=== PATIENT | female | born 1975 | race Caucasian/White ===

== ENCOUNTER 2017-04-27 11:59 | Emergency (ER) | payer OTHER ==
[2017-04-27 12:07] VITALS: BP 107/83; PULSE 70; TEMP 99.3; BMI 25.4
[2017-04-27] MEDS ORDERED: RABIES VACCINE (PCEC)/PF 2.5 UNIT/VIAL IM ONE (13:33)
[2017-04-27] MEDS ORDERED: RABIES IMMUNE GLOBULIN 300 UNITS/2 ML VIAL IM ONE (13:33)
[2017-04-27] MEDS ORDERED: RABIES IMMUNE GLOBULIN 300 UNITS/2 ML VIAL ONE (13:38)
--- NOTE | 2017-04-27 13:58 | PDOC ---
History of Present Illness - General Chief Complaint: Revisit,Rabies Injection Stated Complaint: RABIES SHOT Time Seen by Provider: 04/27/17 12:41 History Source: Patient Exam Limitations: No Limitations - History of Present Illness Initial Comments: 04/27/17 13:41 Patient is a 41-year-old female [facility]ies [facility]. Patient was sitting in her backyard and a bat landed on her head. She jumped up and swatted it off. There was no bite benigno noted. Initially at urgent care on 11/17/2016 after incident, reports were filed and sent to the [facility] they notified her today to come to emergency department for vaccinations. Past Medical History: Denies. Allergies: No known allergies Medications: None Family History: Non-contributory Social History: Denies smoking, alcohol use, or IVDU Review of Systems GENERAL/CONSTITUTIONAL: No fever or chills. No weakness. No weight change. HEAD, EYES, EARS, NOSE AND THROAT: No change in vision. No ear pain or discharge. No sore throat. CARDIOVASCULAR: No chest pain or shortness of breath. RESPIRATORY: No cough, wheezing, or hemoptysis. MUSCULOSKELETAL: No joint or muscle swelling or pain. No neck or back pain. SKIN AND BREASTS: No rash or easy bruising. No open areas. Physical Exam: GENERAL: The patient is awake, alert, and fully oriented, in no acute distress. NECK: Normal range of motion, supple without lymphadenopathy, JVD, or masses. LUNGS: Breath sounds equal, clear to auscultation bilaterally. No wheezes, and no crackles. HEART: Regular rate and rhythm, normal S1 and S2 without murmur, rub or gallop. MUSCULOSKELETAL: Normal range of motion, no edema. No clubbing or cyanosis. No cords, erythema, or tenderness. No CVA Tenderness with fist. SKIN: Warm, Dry, normal turgor, no rashes or lesions noted. No open areas. Past History - Past Medical History Allergies/Adverse Reactions: Allergies Allergy/AdvReac Type Severity Reaction Status Date / Time No Known Allergies Allergy Verified 04/27/17 12:07 Home Medications: Ambulatory Orders NK [No Known Home Medication] 04/27/17 Diabetes: Yes (Pre) Other medical history: iron deficiency, alopecia, Raynolds dis - Suicide/Smoking/Psychosocial Hx Smoking History: Never smoked Information on smoking cessation initiated: No Hx Alcohol Use: No Drug/Substance Use Hx: No Substance Use Type: None *Physical Exam - Vital Signs Last Vital Signs Temp Pulse Resp BP Pulse Ox 99.3 F 70 19 107/83 99 04/27/17 12:06 04/27/17 12:06 04/27/17 12:06 04/27/17 12:06 04/27/17 12:06 Medical Decision Making - Medical Decision Making 04/27/17 13:58 A/P: Patient here for rabies vaccination, [facility] report has been received will give rabies and as indicated. Schedule for when to return give nto patient. *DC/Admit/Observation/Transfer Diagnosis at time of Disposition: Exposure to bat without known bite, Encounter for prophylactic rabies immune globin - Discharge Dispostion Disposition: HOME Condition at time of disposition: Good Admit: No - Referrals Referrals: Danette Maki MD [Primary Care Provider] - - Patient Instructions Printed Discharge Instructions: DI for Rabies Vaccine - Post Discharge Activity Forms/Work/School Notes: Rabies Vaccination F/U Bernardo.
== END 2017-04-27 14:18 | disposition home or self-care (01) ==
LOC: JERFT 11:59
PROC: 3E0234Z Introduction of Serum, Toxoid and Vaccine into Muscle, Percutaneous Approach (ICD-10-PCS; principal; 2017-04-27)
DX: Z23 Encounter for immunization (principal); Z20.3 Contact with and (suspected) exposure to rabies
CPT/HCPCS: 90375; 90675; 99281-25

== ENCOUNTER 2017-04-30 12:33 | Emergency (ER) | payer OTHER ==
[2017-04-30 12:44] VITALS: BP 128/71; PULSE 81; TEMP 99; BMI 23.8
[2017-04-30] MEDS ORDERED: RABIES VACCINE (PCEC)/PF 2.5 UNIT/VIAL IM ONE (12:56)
--- NOTE | 2017-04-30 13:00 | PDOC ---
History of Present Illness - General Chief Complaint: Revisit,Rabies Injection Stated Complaint: REVISIT/ VACCINE Time Seen by Provider: 04/30/17 12:55 History Source: Patient Exam Limitations: No Limitations - History of Present Illness Initial Comments: 04/30/17 12:55 rabies vaccine 2, patient's exposure was 3 days ago where back landed on her head for a few seconds. Is uncertain as to bite but health department recommended rabies vaccination series. Patient states had no problems with first vaccine or the immunoglobulin. 04/30/17 17:07 Timing/Duration: unsure Severity: mild Associated Symptoms: reports: denies symptoms. denies: fever/chills, headaches Aspirin Received prior to arrival: Yes: no aspirin today Past History - Travel Traveled outside of the country in the last 30 days: No Close contact w/someone who was outside of country & ill: No - Past Medical History Allergies/Adverse Reactions: Allergies Allergy/AdvReac Type Severity Reaction Status Date / Time No Known Allergies Allergy Verified 04/30/17 12:44 Home Medications: Ambulatory Orders NK [No Known Home Medication] 04/27/17 Diabetes: Yes (Pre) - Suicide/Smoking/Psychosocial Hx Smoking History: Never smoked Information on smoking cessation initiated: No Hx Alcohol Use: No Drug/Substance Use Hx: No Substance Use Type: None Review of Systems - Review of Systems Able to Perform ROS?: Yes Is the patient limited Yakut proficient: Yes Constitutional: Yes: See HPI. No: Symptoms Reported, Fever, Malaise HEENTM: Yes: See HPI. No: Symptoms Reported Respiratory: Yes: See HPI. No: Symptoms reported Musculoskeletal: No: Symptoms Reported Integumentary: Yes: See HPI. No: Symptoms Reported All Other Systems: Reviewed and Negative *Physical Exam - Vital Signs Last Vital Signs Temp Pulse Resp BP Pulse Ox 99 F 81 18 128/71 99 04/30/17 12:42 04/30/17 12:42 04/30/17 12:42 04/30/17 12:42 04/30/17 12:42 - Physical Exam General Appearance: Yes: Nourished, Appropriately Dressed. No: Apparent Distress HEENT: positive: OLEKSANDR, Normal ENT Inspection, TMs Normal, Pharynx Normal Neck: positive: Supple Respiratory/Chest: positive: Lungs Clear Extremity: positive: Normal Capillary Refill, Normal Inspection Integumentary: positive: Normal Color, Dry, Warm Neurologic: positive: manager of digital II-XII NML intact, Fully Oriented, Alert, Normal Mood/ Affect, Normal Response, Motor Strength 5/5 *DC/Admit/Observation/Transfer Diagnosis at time of Disposition: Encounter for repeat administration of rabies vaccination - Discharge Dispostion Disposition: HOME Condition at time of disposition: Stable Admit: No - Referrals Referrals: Danette Maki MD [Primary Care Provider] - - Patient Instructions Printed Discharge Instructions: DI for Rabies Vaccine Additional Instructions: Return May 04 for 3rd Rabies vaccine
== END 2017-04-30 13:08 | disposition home or self-care (01) ==
LOC: JERFT 12:33
PROC: 3E0234Z Introduction of Serum, Toxoid and Vaccine into Muscle, Percutaneous Approach (ICD-10-PCS; principal; 2017-04-30)
DX: Z23 Encounter for immunization (principal); Z20.3 Contact with and (suspected) exposure to rabies
CPT/HCPCS: 90675; 99281-25

== ENCOUNTER 2017-05-04 12:16 | Emergency (ER) | payer OTHER ==
[2017-05-04 12:47] VITALS: BP 109/88; PULSE 92; TEMP 98.9; BMI 23.8
[2017-05-04] MEDS ORDERED: RABIES VACCINE (PCEC)/PF 2.5 UNIT/VIAL IM ONE (12:55)
--- NOTE | 2017-05-04 12:58 | PDOC ---
History of Present Illness - General Chief Complaint: Revisit,Rabies Injection Stated Complaint: REVISIT/ VACCINE Time Seen by Provider: 05/04/17 12:55 History Source: Patient Exam Limitations: No Limitations - History of Present Illness Initial Comments: 05/04/17 13:00 Patient is a 41-year-old female sent [facility] for rabies vaccinations. Patient was sitting in her backyard and a bat landed on her head. Initial incident 11/17, here for third rabies vaccination. No previous vaccination noted. Past Medical History: Denies. Allergies: No known allergies Medications: None Family History: Non-contributory Social History: Denies smoking, alcohol use, or IVDU Review of Systems GENERAL/CONSTITUTIONAL: No fever or chills. No weakness. No weight change. HEAD, EYES, EARS, NOSE AND THROAT: No change in vision. No ear pain or discharge. No sore throat. CARDIOVASCULAR: No chest pain or shortness of breath. RESPIRATORY: No cough, wheezing, or hemoptysis. MUSCULOSKELETAL: No joint or muscle swelling or pain. No neck or back pain. SKIN AND BREASTS: No rash or easy bruising. No open areas. Physical Exam: GENERAL: The patient is awake, alert, and fully oriented, in no acute distress. NECK: Normal range of motion, supple without lymphadenopathy, JVD, or masses. LUNGS: Breath sounds equal, clear to auscultation bilaterally. No wheezes, and no crackles. HEART: Regular rate and rhythm, normal S1 and S2 without murmur, rub or gallop. MUSCULOSKELETAL: Normal range of motion, no edema. No clubbing or cyanosis. No cords, erythema, or tenderness. No CVA Tenderness with fist. SKIN: Warm, Dry, normal turgor, no rashes or lesions noted. No open areas. Past History - Past Medical History Allergies/Adverse Reactions: Allergies Allergy/AdvReac Type Severity Reaction Status Date / Time No Known Allergies Allergy Verified 04/30/17 12:44 Home Medications: Ambulatory Orders NK [No Known Home Medication] 04/27/17 Diabetes: Yes (Pre) - Immunization History Immunization Up to Date: Yes - Suicide/Smoking/Psychosocial Hx Smoking History: Never smoked Have you smoked in the past 12 months: No Information on smoking cessation initiated: No Hx Alcohol Use: No Drug/Substance Use Hx: No Substance Use Type: None *Physical Exam - Vital Signs Last Vital Signs Temp Pulse Resp BP Pulse Ox 98.9 F 92 H 16 109/88 97 05/04/17 12:43 05/04/17 12:43 05/04/17 12:43 05/04/17 12:43 05/04/17 12:43 Medical Decision Making - Medical Decision Making 05/04/17 13:01 A/P: Patient here for third rabies vaccination. To return for one more. 05/1105/04/17 13:02 *DC/Admit/Observation/Transfer Diagnosis at time of Disposition: Encounter for repeat administration of rabies vaccination - Discharge Dispostion Disposition: HOME Condition at time of disposition: Good Admit: No - Referrals Referrals: Danette Maki MD [Primary Care Provider] - - Post Discharge Activity Forms/Work/School Notes: Rabies Vaccination F/U Bernardo.
== END 2017-05-04 13:04 | disposition home or self-care (01) ==
LOC: JERFT 12:16
PROC: 3E0234Z Introduction of Serum, Toxoid and Vaccine into Muscle, Percutaneous Approach (ICD-10-PCS; principal; 2017-05-04)
DX: Z23 Encounter for immunization (principal); Z20.3 Contact with and (suspected) exposure to rabies
CPT/HCPCS: 90675; 99281-25

== ENCOUNTER 2017-05-11 12:42 | Emergency (ER) | payer OTHER ==
[2017-05-11 13:01] VITALS: BP 116/70; PULSE 71; TEMP 98.9; BMI 23.8
[2017-05-11] MEDS ORDERED: RABIES VACCINE (PCEC)/PF 2.5 UNIT/VIAL IM ONE (13:58)
--- NOTE | 2017-05-11 14:05 | PDOC ---
History of Present Illness - General Chief Complaint: Revisit,Rabies Injection Stated Complaint: RABIES SHOT Time Seen by Provider: 05/11/17 13:49 History Source: Patient Exam Limitations: No Limitations - History of Present Illness Initial Comments: 05/11/17 14:15 pt here for fourth rabies vaccine. Pt states she had a BAT that flew onto her head. Pt has no complaints of any reactions from the previous rabies vaccine. Past History - Past Medical History Allergies/Adverse Reactions: Allergies Allergy/AdvReac Type Severity Reaction Status Date / Time No Known Allergies Allergy Verified 05/11/17 12:59 Home Medications: Ambulatory Orders NK [No Known Home Medication] 04/27/17 Diabetes: Yes (Pre) - Immunization History Immunization Up to Date: Yes - Suicide/Smoking/Psychosocial Hx Smoking History: Never smoked Have you smoked in the past 12 months: No Information on smoking cessation initiated: No Hx Alcohol Use: No Drug/Substance Use Hx: No Substance Use Type: None *Physical Exam - Vital Signs Last Vital Signs Temp Pulse Resp BP Pulse Ox 98.9 F 71 20 116/70 97 05/11/17 13:00 05/11/17 13:00 05/11/17 13:00 05/11/17 13:00 05/11/17 13:00 - Physical Exam General Appearance: Yes: Nourished, Appropriately Dressed HEENT: positive: EOMI, OLEKSANDR Integumentary: positive: Normal Color, Dry, Warm Neurologic: positive: Fully Oriented, Alert, Normal Mood/Affect, Normal Response , Motor Strength 5/5 Medical Decision Making - Medical Decision Making 05/11/17 14:16 cc: here for rabies vaccine #4 no complaints no evidence of bat bite *DC/Admit/Observation/Transfer Diagnosis at time of Disposition: Encounter for repeat administration of rabies vaccination - Discharge Dispostion Disposition: HOME Condition at time of disposition: Good - Referrals Referrals: Danette Maki MD [Primary Care Provider] - - Patient Instructions Printed Discharge Instructions: DI for Rabies Vaccine
== END 2017-05-11 14:13 | disposition home or self-care (01) ==
LOC: JERFT 12:42
PROC: 3E0234Z Introduction of Serum, Toxoid and Vaccine into Muscle, Percutaneous Approach (ICD-10-PCS; principal; 2017-05-11)
DX: Z20.3 Contact with and (suspected) exposure to rabies (principal)
CPT/HCPCS: 90675; 99281-25